=== PATIENT | male | born 1980 | race Caucasian/White ===

== ENCOUNTER 2022-04-18 09:22 | Emergency (ER) | payer OTHER ==
[~2022-04-18] VITALS: Ht 170.2 cm; Wt 95.7 kg
[~2022-04-18 09:22] MED LIST: CIPR500T4 PO; METR-520 PO
[2022-04-18 09:30] VITALS: BP 126/86
--- NOTE | 2022-04-18 09:36 | NUR ---
PT AMB TO BED
--- NOTE | 2022-04-18 10:05 | NUR ---
41YO MALE PT C/O BURNING 9/10 EPIGASTRIC PAIN AND N/V/D-BLOOD X4DAYS. REPORTS SUDDEN CONSTANT ONSET W/ PAIN AT MOST ON MOVEMENT. ABD NON TENDER OR DISTENDED. DENIES TAKING MEDICATION. PT AAOX4, RESPIRATIONS EVEN AND UNLABORED. HOB POSITONED PER COMFORT. HX:DENIES NKA
--- NOTE | 2022-04-18 10:15 | NUR ---
41/M PRESENTS TO ED WITH C/O 9/10 BURNING EPIGASTRIC PAIN, N/V/D X4 DAYS. PATIENT REPORTS PAIN CAME ON SUDDENLY AND WORSENS WITH MOVEMENT AND AFTER MEALS. DENIES TAKING MEDS FOR SYMPTOMS, DENIES SOB, CP, FEVERS.
[2022-04-18] MEDS ORDERED: NACL 0.9% 1,000 ML IV ONE (10:35)
[2022-04-18] MEDS ORDERED: MORPHINE SULFATE 4 MG/ML SYR IVP ONE (10:35)
[2022-04-18] MEDS ORDERED: ONDANSETRON 4 MG/2 ML VIAL IVP ONE (10:35)
--- NOTE | 2022-04-18 10:52 | NUR ---
US AT BEDSIDE
[2022-04-18 11:05] LABS: BASOPHILS % (AUTO) 0.6 % (0.0-2.0); EOSINOPHILS # (AUTO) 0.1 K/uL (0-0.4); EOSINOPHILS % (AUTO) 1.1 % (0.0-4.0); HEMOGLOBIN 15.2 g/dL (12.0-18.0); LYMPHOCYTES # (AUTO) 1.2 K/uL (2.0-11.5); LYMPHOCYTES % (AUTO) 15.5 % (20.5-51.1); MEAN CORPUSCULAR HEMOGLOBIN 33 pg (27-31); MEAN CORPUSCULAR HGB CONC 34 g/dL (33-37); MEAN CORPUSCULAR VOLUME 97.4 fL (80-94); MONOCYTES # (AUTO) 0.6 K/uL (0.8-1.0); MONOCYTES % (AUTO) 7.2 % (1.7-9.3); NEUTROPHILS % (AUTO) 75.6 % (42.2-75.2); PLATELET COUNT (AUTO) 242 K/uL (140-450); RED BLOOD CELL COUNT(AUTO) 4.62 MIL/uL (4.20-6.10); RED CELL DISTRIBUTION WIDTH 13.4 % (11.6-13.7); WHITE BLOOD COUNT (AUTO) 7.9 K/uL (4.8-10.8)
[2022-04-18 11:30] LABS: PROTHROMBIN TIME 9.9 secs (10.8-13.4)
[2022-04-18 11:46] LABS: ALBUMIN 4.4 g/dL (3.4-5.0); ANION GAP 11.2 (8-16); CARBON DIOXIDE 26.8 mmol/L (21-32); CREATININE 0.9 mg/dL (0.6-1.3); TOTAL BILIRUBIN 0.5 mg/dL (0.0-1.0)
[2022-04-18] MEDS ORDERED: FAMOTIDINE 20 MG/2 ML VIAL IVP ONE (12:05)
[2022-04-18] MEDS ORDERED: ALUMINUM HYD/MAG/SIMETHICONE 30 ML UDC PO ONE (12:05)
[2022-04-18] MEDS ORDERED: ACET-8905 PO (12:32)
[2022-04-18] MEDS ORDERED: FAMO-92 PO (12:32)
[2022-04-18] MEDS ORDERED: ONDA-188 PO (12:32)
--- NOTE | 2022-04-18 12:57 | NUR ---
IV removed, catheter intact and site benign. Applied folded 4x4 gauze and tape to stop bleeding.
[2022-04-18 12:58] VITALS: BP 143/98
--- NOTE | 2022-04-18 12:59 | NUR ---
Patient discharged with v/s stable. Written and verbal after care instructions ABOUT GASTRITIS, BILIARY COLIC given and explained. Patient alert, oriented and verbalized understanding of instructions. Ambulatory with steady gait. All questions addressed prior to discharge. ID band removed. Patient advised to follow up with PMD. Rx of NORCO 5-325, PEPCID AND ZOFRAN given. Patient educated on indication of medication including possible reaction and side effects. Opportunity to ask questions provided and answered.
== END 2022-04-18 12:59 | disposition home or self-care (01) ==
LOC: MED 09:22
DX: K80.20 Calculus of gallbladder without cholecystitis without obstruction (principal); K29.70 Gastritis, unspecified, without bleeding; R11.10 Vomiting, unspecified; R68.83 Chills (without fever); Z79.899 Other long term (current) drug therapy; Z98.890 Other specified postprocedural states
CPT/HCPCS: 36415; 76705; 80053; 83690; 85025; 85610; 85730; 86886; 86900; 86901; 96361; 96374; 96375; 99285; J2270; J2405; J3490; J7030; Q0092